=== PATIENT | female | born 1990 | race Caucasian/White ===

== ENCOUNTER 2024-01-13 00:17 | Inpatient (IN) ==
[2024-01-13] MEDS ORDERED: LIDOCAINE 1% LOCAL 20 ML VIAL INFIL PRN (00:59)
[2024-01-13] MEDS: LACTATED RINGER'S 1,000 ML IV PRN (01:10)
[2024-01-13 01:41] LABS: Hematocrit (blood only) 35.6 % (37.0-47.0); Hemoglobin 12.3 g/dl (12.0-16.0); Mean Corpuscular Hemoglobin 33.3 pg (25.0-34.0); Mean Corpuscular Hgb Conc 34.6 g/dL (32.0-36.0); Mean Corpuscular Volume 96.5 fL (80.0-100.0); Mean Platelet Volume 12.2 fL (9.4-12.4); Platelet Count 163 K/uL (130-400); RDW Standard Deviation 46.4 fL (36.4-46.3); Red Blood Count 3.69 M/uL (4.20-5.40); White Blood Count 9.16 K/ul (4.8-10.8)
[2024-01-13] MEDS: BUPIVACAINE 0.25% PF 30 ML VIAL ONE (01:51)
[2024-01-13] MEDS: LIDOCAINE 2%/EPINEPHRINE 1:200,000 20 ML PF ONE (01:51)
[2024-01-13] MEDS: fentaNYL citrate PF 100 MCG/2 ML VIAL ONE (01:53)
[2024-01-13] MEDS: fentANYL 2 MCG/ML BUPIVacaine 0.125%-NSS 100ML BAG ONE (01:55)
[2024-01-13] MEDS: SODIUM CHLORIDE 0.9% PF INJ 10 ML VIAL ONE (02:05)
[2024-01-13] MEDS: ePHEDrine sulfate 50 MG/ML AMP ONE (02:05)
--- NOTE | 2024-01-13 02:07 | Anesthesiology Consultation ---
Date of Service January 13, 2024 Assessment & Plan Chart Review Chart Review: Acceptable Risk for Labor Epidural Consults Requested none History Height/Weight Height: 5 ft 7 in Weight: 80.739 kg Allergies Allergy/AdvReac Type Severity Reaction Status Date / Time No Known Allergies Allergy Verified 01/08/24 08:22 Medications Home Medications Medication Instructions Recorded Confirmed Last Taken sertraline 50 mg tablet 50 mg PO DAILY #30 tabs 12/22/23 01/13/24 01/12/24 vits no.124-ferrous fum 1 tab PO DAILY 01/13/24 01/13/24 01/12/24 27 mg iron-folic acid 800 mcg tablet ( Vitamin) Active Medications Generic Name Dose Route Start Last Admin Trade Name Freq PRN Reason Stop Dose Admin Lactated Ringer's 1,000 mls @ 125 mls/hr 01/13/24 00:59 01/13/24 02:03 Lr IV 01/15/24 00:58 125 mls/hr .Q8H PRN Administration L&D Protocol Protocol Past Medical History Medical History GERD (gastroesophageal reflux disease) during -controlled, stable per pt History of herniated intervertebral disc (~2007) L5-S1 s/p discectomy History of PCOS Past Family History Family History Grandmother (Paternal) Diabetes Denies family history of Ovarian cancer Breast cancer Colorectal cancer Past Surgical History Surgical History Status post surgery herniated disc L5-S1 discectomy S/P wisdom tooth extraction S/P ear surgery cholesteatoma S/P appendectomy Social History Smoking Status: Never smoker Do You Dip or Chew Tobacco: No Hx Alcohol Use: No Hx Substance Use: No substance use type: does not use Physical Exam Vital Signs Last Vital Signs Temp 36.4 C L 01/13/24 00:39 Pulse 66 01/13/24 02:03 Resp 18 01/13/24 00:39 BP 119/61 01/13/24 02:03 Pulse Ox 99 01/13/24 02:03 Testing Laboratory Results 01/13/24 01:25
[2024-01-13] MEDS ORDERED: fentaNYL citrate PF 100 MCG/2 ML VIAL EPI PRN (02:09)
[2024-01-13] MEDS ORDERED: ePHEDrine sulfate 50 MG/ML AMP IV PRN (02:09)
[2024-01-13] MEDS ORDERED: NALOXONE HCL 1 MG in SODIUM CHLORIDE 0.9% 1,000 ML IV PRN (02:09)
[2024-01-13] MEDS ORDERED: LIDOCAINE 2% MPF LOCAL 5 ML VIAL EPI PRN (02:09)
[2024-01-13] MEDS ORDERED: NALOXONE HCL 0.4 MG/1 ML VIAL/CARP IV PRN (02:09)
[2024-01-13] MEDS ORDERED: SODIUM CHLORIDE 0.9% PF INJ 10 ML VIAL EPI PRN (02:09)
[2024-01-13] MEDS ORDERED: BUPIVACAINE 0.25% PF 30 ML VIAL EPI PRN (02:09)
[2024-01-13] MEDS ORDERED: ROPIVACAINE 0.5% PF 5 MG/ML 20 ML VIAL EPI PRN (02:09)
[2024-01-13] MEDS ORDERED: fentANYL 2 MCG/ML BUPIVacaine 0.125%-NSS 100ML BAG EPI PRN (02:09)
[2024-01-13] MEDS ORDERED: diphenhydrAMINE 50 MG/ML VIAL IV PRN (02:09)
[2024-01-13] MEDS ORDERED: NALBUPHINE HCL 5 MG in SYRINGE 0 ML IV PRN (02:09)
[2024-01-13] MEDS: SODIUM CHLORIDE 0.9% PF INJ 10 ML VIAL EPI STA (06:08)
[2024-01-13] MEDS: LIDOCAINE 2%/EPINEPHRINE 1:200,000 20 ML PF EPI STA (06:08)
[2024-01-13] MEDS: BUPIVACAINE 0.25% PF 30 ML VIAL EPI STA (06:08)
[2024-01-13] MEDS: fentaNYL citrate PF 100 MCG/2 ML VIAL EPI STA (06:08)
[2024-01-13] MEDS: OXYTOCIN 30 UNITS/NSS 30 UNITS/500 ML BAG IV PRN (06:11)
--- NOTE | 2024-01-13 06:23 | Delivery Summary ---
Vaginal Delivery Summary Date of Service January 13, 2024 Vaginal Delivery Summary and 2nd Degree LAC 33yo at 38+wks presented to L&D with srom, clear fluid and contractions. complicated by AMA. PNL RH pos, RI, GBS neg. Initial exam confirmed srom and 4cm and admitted. Desired epidural for pain management and received this. Dilalated to complete and began 2nd stage. The patient pushed to deliver a viable female infant Apgars 8 and 9 via over 2nd degree perineal laceration. Mouth and nose bulb suctioned at perineum. Shoulders and body delivered with ease. Infant was vigorous and crying at . Cord clamped at 30 seconds of life and infant to maternal abdomen where the cord was then doubly clamped and cut. Placenta delivered spontaneously and intact, three-vessel cord. Hemostasis achieved with dilute pitocin and uterine massage and drainage of the bladder for approximately 200 cc under sterile conditions. Cervix and sulci intact. Laceration reapproximated with 3-0 vicryl in layers. QBL 108 cc. Mother and baby stable in recovery. [facility] Vaginal Delivery Charge Delivery Type Details: and 2nd Degree LAC
[2024-01-13] MEDS ORDERED: bisacodyL 10 MG SUPP PR PRN (06:34)
[2024-01-13] MEDS ORDERED: ACETAMINOPHEN 325 MG TAB PO PRN (06:34)
[2024-01-13] MEDS ORDERED: HYDROCORTISONE ACETATE 25 MG SUPP PR PRN (06:34)
[2024-01-13] MEDS ORDERED: oxyCODONE/ACETAMINOPHEN 5mg/325mg TAB PO PRN (06:34)
[2024-01-13] MEDS ORDERED: OXYTOCIN 30 UNITS/NSS 30 UNITS/500 ML BAG IV PRN (06:34)
[2024-01-13] MEDS: OXYTOCIN 20 UNITS/LR 1,002 ML IV SCH (06:42)
[2024-01-13] MEDS: DIPHTHER/TETAN/PERTUS Vaccine (Tdap, Adol/Adult) 0.5mL IM ONE (06:50)
[2024-01-13] MEDS ORDERED: PRENATAL VITAMIN 1 TAB PO SCH (08:00)
[2024-01-13] MEDS: IBUPROFEN 600 MG TAB PO PRN (08:07)
[2024-01-13] MEDS: DOCUSATE SODIUM 100 MG CAP PO SCH (08:07)
[2024-01-13] MEDS ORDERED: Nursing to Pharmacy Communication SCH (08:15)
--- NOTE | 2024-01-13 08:21 | Anesthesia Procedure Note ---
Date of Service January 13, 2024 Anesthesia Post Epidural Note Vital Signs Vital Signs: Temp Pulse Resp BP Pulse Ox 36.5 C 77 20 121/78 100 01/13/24 05:42 01/13/24 08:12 01/13/24 07:42 01/13/24 08:12 01/13/24 06:16 Pain Intensity Abdomen: Pain Intensity: 8 Notes Mental Status: alert / awake / arousable and participated in evaluation Nausea / Vomiting: adequately controlled Pain: adequately controlled Airway Patency, RR, SpO2: stable & adequate BP & HR: stable & adequate Hydration State: stable & adequate Neuraxial Anesthesia: was administered and sensory block is resolving Anesthetic Complications: no major complications apparent Epidural: Removed without complications and With tip intact
[2024-01-13] MEDS ORDERED: SERTRALINE HCL 50 MG TABLET PO SCH (09:00)
[2024-01-13] MEDS: BENZOCAINE 20% SPRY 85 APPLN/85 GM CAN EXT PRN (14:35)
[2024-01-13] MEDS: SERTRALINE HCL 50 MG TABLET PO SCH (20:46)
[2024-01-13] MEDS: PRENATAL VITAMIN 1 TAB PO SCH (20:46)
[2024-01-13 21:23] VITALS: O2SAT 99
--- NOTE | 2024-01-14 07:01 | Obstetrical Progress Note ---
Date of Service <Opal Santiago DO - Last Filed: 01/14/24 07:04> January 14, 2024 Assessment & Plan <Opal Santiago DO - Last Filed: 01/14/24 07:04> (1) care following vaginal delivery: Feels well today. Eating well, voiding well, ambulating well. Pain well controlled with prn analgesics. Routine care; OOB, ambulation, continue regular diet. Anticipate discharge 24-48 hours after , most likely today. After discharge will have 6 week follow-up with Dr. Mosquera. <Belkis Diaz MD, FACOG - Last Filed: 01/14/24 07:33> (1) care following vaginal delivery: Subjective <Opal Santiago DO - Last Filed: 01/14/24 07:04> Pt is a 33 y/o female who is PPD#1 following at 38 weeks. Today, pt states she is feeling really well. She states that she has been up since the delivery and feels okay moving around. She states that she has eaten since the delivery with no issue, has urinated since, and has a bowel movement. Cramping has been mild and mostly with and lochia has been very minimal. Hoping to go home today as she has a child at home. No questions or complaints at this time. Constitutional: no fever, no chills or no sweats Respiratory: no dyspnea Cardiovascular: no chest pain or no palpitations Breast: no breast pain Genitourinary (female): no dysuria Neurologic: no headache(s) no changes in vision, no headaches Physical Exam <Opal Santiago DO - Last Filed: 01/14/24 07:04> General: Alert, oriented. No acute distress. Cardiac: Regular rate and rhythm, no murmurs, rubs, or gallops. Respiratory: Clear to auscultation bilaterally, no wheezes/rales/rhonchi. No increased work of breathing. Symmetrical chest rise. No respiratory distress. Abdomen: Soft, nontender, nondistended. Bowel sounds present. Uterus: Uterine fundus firm, palpable below the umbilicus. Lower extremities: No lower extremity edema or swelling. No deep calf pain. Results & Data <Opal Santiago DO - Last Filed: 01/14/24 07:04> Vital Signs (Past 12 Hours) Vital Signs Temp Pulse Resp BP Pulse Ox O2 Del Method 01/14/24 04:00 36.3 C L 65 16 128/82 Room Air 01/13/24 23:30 36.5 C 66 16 130/82 Room Air 01/13/24 20:50 36.8 C 74 16 115/70 99 Room Air Supervising Physician <Belkis Diaz MD, FACOG - Last Filed: 01/14/24 07:33> Co-Signing Physician Notes Resident Physician Supervision Note: I was present with Dr. Fritz during the history and exam. I discussed the case with the resident and agree with the findings and plan as documented in the note. Any exceptions or clarifications are listed here: [None] Documented By: Belkis Diaz MD, FACOG Resident Activity Tracking <Opal Santiago DO - Last Filed: 01/14/24 07:04> Resident Involvement: Resident Care Provided Care Provided: OB Delivery
[2024-01-14 09:06] VITALS: BP 125/81; PULSE 70; RESP 18; TEMP 97.5
== END 2024-01-14 10:40 | disposition home or self-care (01) | DRG 807 ==
LOC: OPB 00:17 → 4S1 00:21 → 4E2 10:25